=== PATIENT | male | born 1945 | race Caucasian/White ===

== ENCOUNTER → 2017-07-07 | Outpatient (CLI) | payer MEDICARE, BC ==
[2017-07-07 11:03] LABS: Blood Urea Nitrogen 11 mg/dL (9-20)
--- NOTE | 2017-07-07 13:01 | CT ---
EXAMINATION TYPE: CT abdomen pelvis w con DATE OF EXAM: 07/07/2017 COMPARISON: CT abdomen and pelvis January 23, 2014 HISTORY: Malignant neoplasm of prostate CT DLP: 1221.7 mGycm, Automated Exposure Control for Dose Reduction was Utilized. CONTRAST: CT scan of the abdomen and pelvis is performed with oral and with IV Contrast, patient injected with 100 mL of Isovue 300. FINDINGS: LUNG BASES: There is elevated left hemidiaphragm with bibasilar scarring and/or atelectasis redemonst rated. LIVER/GB: Somewhat contracted gallbladder is noted. Liver is diffusely low dense consistent with fatt y infiltration. PANCREAS: No significant abnormality is seen. SPLEEN: No significant abnormality is seen. ADRENALS: No significant abnormality is seen. KIDNEYS: No significant abnormality is seen. BOWEL: Oral contrast reaches level of rectum. There are diverticula in the colon most prominent in th e sigmoid:. There is no CT evidence for acute diverticulitis. There is no suspicious small or large b owel dilatation. PROSTATE/SEMINAL VESICLES: 3 gold therapy seeds are seen in small size prostate gland with central zo ne calcifications. LYMPH NODES: No greater than 1cm abdominal or pelvic lymph nodes are appreciated. OSSEOUS STRUCTURES: Diffuse osseous sclerotic metastatic disease is redemonstrated with multiple lesi ons in the sacrum and bilateral iliac bones and multiple lesions throughout the thoracolumbar vertebr a. There is interval progression with expansion of sclerotic lesion L2 vertebral body level on curren t study. There are left lower rib lesions seen. IMPRESSION: Diffuse osseous metastatic disease redemonstrated. Some progression present as there is i ncreasing involvement at L2 level noted. No new masses or adenopathy otherwise identified.
--- NOTE | 2017-07-07 14:42 | NM ---
EXAMINATION TYPE: NM bone scan whole body DATE OF EXAM: 07/07/2017 COMPARISON: 01/23/2014 HISTORY: [id number] neoplasm of prostate Delayed whole-body scanning was performed following the injection of 24.8 mCi Tc 99m MDP. Images acq uired 3 hours post injection. FINDINGS: There is progressive uptake involving the approximate T9 and L2 segment lesions seen previously. Prev iously noted right 5 and 7 rib lesions are not perceptible at this time. Recently noted left posterio r rib lesion is not perceptible at this time. No new areas of increased uptake to suggest metastatic disease. Degenerative uptake about the shoulders, sternoclavicular joints knees and mid feet. IMPRESSION: 1. Mildly progressive increased uptake involving T9 and L2 lesions. Otherwise the lesions seen previo usly appear improved or resolved. No new lesions are identified.
== END ==
LOC: RADNMMAIN 10:05
PROVIDERS: ATTEND Internal Medicine Hematology & Oncology
DX: C61 Malignant neoplasm of prostate (principal); C79.51 Secondary malignant neoplasm of bone; D53.1 Other megaloblastic anemias, not elsewhere classified
CPT/HCPCS: 82565; 84520; 74177; 36415; 78306; A9503; Q9967

== ENCOUNTER → 2017-12-29 | Outpatient (CLI) | payer MEDICARE, BC ==
[2017-12-29 09:54] LABS: Blood Urea Nitrogen 13 mg/dL (9-20)
--- NOTE | 2017-12-29 09:57 | XR ---
EXAMINATION TYPE: XR chest 2V DATE OF EXAM: 12/29/2017 COMPARISON: 1013 attending HISTORY: Shortness of breath TECHNIQUE: Frontal and lateral views of the chest are obtained. FINDINGS: Scattered senescent parenchymal changes noted. Pulmonary nodules redemonstrated. Overall stability relative to 2009. No evidence for infiltrate. No evidence for atelectasis. Heart size is stable. Mediastinal structures are stable and grossly unremarkable. No evidence for hilar prominence. Degenerative changes dorsal spine. Suspect sclerotic bone metastases. IMPRESSION: 1. No evidence for acute pulmonary disease. 2. Suspect sclerotic bone metastases. 3. Stable pulmonary nodularity.
--- NOTE | 2017-12-29 13:59 | CT ---
EXAMINATION TYPE: CT abdomen pelvis w con DATE OF EXAM: 12/29/2017 COMPARISON: 07/07/2017 INDICATION: Prostate CA, chemotherapy DLP: 1177.9 mGycm, Automated exposure control for dose reduction was used. CONTRAST: 100 mL of Isovue 300. Study performed with Oral Contrast TECHNIQUE: Axial images were obtained from above the diaphragm to the pubic rami in the axial plane a t 5 mm thick sections. Reconstructed images are reviewed on the computer in the coronal plane. FINDINGS: Limited CT sections are obtained the lung bases. The lung bases are clear. CT ABDOMEN: Liver: Normal Spleen: Normal Pancreas: Normal Adrenal glands: The adrenal glands are normal. Gallbladder: Normal Kidneys: No masses are evident. No hydronephrosis is present. No cysts are present. Delayed images were obtained through the kidneys, which remain unremarkable. Aorta: Vascular calcification is within the aorta. Inferior vena cava: Normal. CT PELVIS: Loops of bowel within the abdomen and pelvis are normal. Multiple diverticular changes are throug h the sigmoid colon. Diffuse additional scattered diverticuli are present. Appendix: What little portion of the appendix appears to be visualized is unremarkable. This is diffi cult to separate from a diverticulum of the posterior cecum. No suspicious inflammatory changes are e vident. Urinary bladder: Normal. Genitourinary structures: Prostate markers are present. Osseous structures: There are some sclerotic lesions within the inferior lateral ischio ramus. There are multiple scattered sclerotic areas within the bilateral iliac wings and within the sacrum suspici ous for metastatic disease. Some vertebral body sclerotic areas are present suggestive for additional metastatic lesions. IMPRESSIONS: 1. Multiple scattered sclerotic lesions including ribs and vertebral bodies sacrum and ilium suggest kameron for metastatic disease.
--- NOTE | 2017-12-29 15:11 | NM ---
EXAMINATION TYPE: NM bone scan whole body DATE OF EXAM: 12/29/2017 COMPARISON: NONE HISTORY: [id number] neoplasm of prostate Delayed whole-body scanning was performed following the injection of 25.8 mCi Tc 99m MDP. Images acq uired 4 hours post injection. FINDINGS: Progressive uptake noted to involve the T9 and L2 segments. There is also uptake noted to involve the posterior left L5-S1 region which is unchanged. Increased uptake is also noted to involve the upper cervical spine to the right of midline posteriorly. Posterior left rib 3. Uptake is new. No additiona l areas of new uptake are seen at this time. Heterogenous uptake involving the ribs. IMPRESSION: 1. Progressive uptake involving the thoracic and lumbar segments T9 and L2 with stable small focal up take at L5-S1. 2. New uptake involving posterior left rib #3.
== END | disposition home or self-care (01) ==
LOC: RADCTMAIN 09:15
PROVIDERS: ATTEND Internal Medicine Hematology & Oncology
DX: C61 Malignant neoplasm of prostate (principal); R91.8 Other nonspecific abnormal finding of lung field; D53.1 Other megaloblastic anemias, not elsewhere classified; Z51.11 Encounter for antineoplastic chemotherapy
CPT/HCPCS: 82565; 84520; 71046; 74177; 36415; 78306; A9503; Q9967

== ENCOUNTER → 2018-03-14 | Outpatient (CLI) | payer MEDICARE, BC ==
[2018-03-14 10:36] LABS: Basophils % (A) 0 %; Eosinophils # (A) 0.1 k/uL (0-0.7); Eosinophils % (A) 1 %; HCT 40.8 % (39.0-53.0); HGB 13.6 gm/dL (13.0-17.5); Lymphocytes # (A) 0.8 k/uL (1.0-4.8); Lymphocytes % (A) 9 %; MCHC 33.4 g/dL (31.0-37.0); MCV 113.7 fL (80.0-100.0); Macrocytosis Marked; Mean Platelet Volume 6.8; Monocytes # (A) 0.4 k/uL (0-1.0); Monocytes % (A) 5 %; Neutrophils % (A) 83 %; Platelet Count 223 k/uL (150-450); RBC 3.58 m/uL (4.30-5.90); RDW 12.7 % (11.5-15.5); WBC 8.4 k/uL (3.8-10.6)
== END | disposition home or self-care (01) ==
LOC: LABWHC1 09:41
PROVIDERS: ATTEND Radiology Radiation Oncology
DX: C61 Malignant neoplasm of prostate (principal)
CPT/HCPCS: 36415; 84153; 84403; 85025

== ENCOUNTER → 2018-05-01 | Outpatient (CLI) | payer MEDICARE, BC ==
[2018-05-01 13:08] LABS: Basophils % (A) 1 %; Eosinophils # (A) 0.1 k/uL (0-0.7); Eosinophils % (A) 1 %; HCT 41.1 % (39.0-53.0); HGB 13.6 gm/dL (13.0-17.5); Lymphocytes # (A) 0.8 k/uL (1.0-4.8); Lymphocytes % (A) 12 %; MCHC 33.1 g/dL (31.0-37.0); MCV 114.9 fL (80.0-100.0); Macrocytosis Marked; Mean Platelet Volume 7.7; Monocytes # (A) 0.4 k/uL (0-1.0); Monocytes % (A) 5 %; Neutrophils # (A) 5.5 k/uL (1.3-7.7); Neutrophils % (A) 80 %; Platelet Count 208 k/uL (150-450); RBC 3.57 m/uL (4.30-5.90); RDW 12.6 % (11.5-15.5); WBC 6.8 k/uL (3.8-10.6)
[2018-05-01 18:42] LABS: Anion Gap 6.5 mmol/L (4.00-12.00); Calcium 9.2 mg/dL (8.7-10.3); Carbon Dioxide 30.5 mmol/L (21.6-31.8); Potassium 5.1 mmol/L (3.5-5.5)
== END ==
LOC: LABWHC1 10:53
PROVIDERS: ATTEND Radiology Radiation Oncology
DX: C61 Malignant neoplasm of prostate (principal); D64.9 Anemia, unspecified; Z92.3 Personal history of irradiation
CPT/HCPCS: 36415; 80048; 85025

== ENCOUNTER → 2018-06-26 | Outpatient (CLI) | payer MEDICARE, BC ==
[2018-06-26 12:39] LABS: Basophils % (A) 0 %; Eosinophils % (A) 0 %; HGB 13.1 gm/dL (13.0-17.5); Lymphocytes # (A) 0.6 k/uL (1.0-4.8); Lymphocytes % (A) 10 %; MCH 37.6 pg (25.0-35.0); MCHC 33.7 g/dL (31.0-37.0); MCV 111.6 fL (80.0-100.0); Macrocytosis Marked; Mean Platelet Volume 7.4; Monocytes # (A) 0.3 k/uL (0-1.0); Monocytes % (A) 6 %; Neutrophils # (A) 5.1 k/uL (1.3-7.7); Neutrophils % (A) 82 %; Platelet Count 213 k/uL (150-450); RBC 3.49 m/uL (4.30-5.90); RDW 12.8 % (11.5-15.5); WBC 6.2 k/uL (3.8-10.6)
[2018-06-26 20:28] LABS: Anion Gap 8.6 mmol/L (4.00-12.00); Calcium 9.5 mg/dL (8.7-10.3); Carbon Dioxide 27.4 mmol/L (21.6-31.8); Potassium 4.8 mmol/L (3.5-5.5)
== END | disposition home or self-care (01) ==
LOC: LABWHC1 11:08
PROVIDERS: ATTEND Radiology Radiation Oncology
DX: C61 Malignant neoplasm of prostate (principal); C79.51 Secondary malignant neoplasm of bone; Z92.3 Personal history of irradiation
CPT/HCPCS: 36415; 80048; 84153; 85025

== ENCOUNTER → 2019-01-03 | Outpatient (CLI) | payer MEDICARE, BC ==
--- NOTE | 2019-01-04 17:52 | MR ---
EXAMINATION TYPE: MR cervical spine wo/w con DATE OF EXAM: 01/03/2019 COMPARISON: None HISTORY: Prostate cancer / Neck pain, Numbness Rt face CONTRAST: Performed utilizing 7.5 mL intravenous Gadavist gadolinium contrast. TECHNIQUE: Multiplanar multiecho imaging on a 3.0 Jaz magnet is performed through the cervical spin e. FINDINGS: The craniovertebral junction is normal. There is straightening of the cervical spine within the midportion. A mild retrolisthesis of C4 on C3 and C4 on C5 may be present. Mild anterolisthesis of C5 on C6 may be present. C7-T1: No focal disc herniation or significant disc bulge is evident. No spinal canal stenosis or n eural foraminal stenosis is present. C6-7: Endplate changes and disc bulge at mild anterior thecal sac compression. No AP spinal canal celeste nosis is present. Uncovertebral joint hypertrophy is moderate bilateral foraminal stenosis.. C5-6: Disc uncovering is present. No cord compression is evident. Uncovertebral joint hypertrophy is present with moderate bilateral foraminal stenosis.. C4-5: There is a large disc bulge. This is somewhat asymmetric into the left paracentral region. [place] neeru, no cord contact or cord deformity is evident. This does come in close approximation with spinal cord. No AP spinal canal stenosis is present. Mild bilateral foraminal narrowing from uncovertebral j oint hypertrophy is present.. C3-4: No focal disc herniation or significant disc bulge is evident. No spinal canal stenosis or nini ral foraminal stenosis is present. C2-3: No focal disc herniation or significant disc bulge is evident. No spinal canal stenosis or nini ral foraminal stenosis is present. IMPRESSIONS: 1. Large disc bulge C4-5 into the left paracentral region without cord contact or cord deformity. 2. Disc uncovering with mild anterior thecal sac compression at C5-6. 3. Endplate changes and disc bulging at C6-7 with mild anterior thecal sac impression. 4. Multilevel foraminal stenosis is present bilaterally and appears greatest C5-6 C6-7.
== END | disposition home or self-care (01) ==
LOC: RADMRIMAIN 15:20
PROVIDERS: ATTEND Internal Medicine Hematology & Oncology
DX: M48.02 Spinal stenosis, cervical region (principal); M47.812 Spondylosis without myelopathy or radiculopathy, cervical region; M50.821 Other cervical disc disorders at C4-C5 level; G95.89 Other specified diseases of spinal cord; C79.82 Secondary malignant neoplasm of genital organs
CPT/HCPCS: 72156; A9585

== ENCOUNTER → 2019-05-09 | Outpatient (CLI) | payer MEDICARE, BC ==
--- NOTE | 2019-05-09 15:56 | US ---
EXAMINATION TYPE: US carotid duplex BILAT DATE OF EXAM: 05/09/2019 COMPARISON: NONE CLINICAL HISTORY: C61 Malignant neoplasm of prostate, R55 Syncope. EXAM MEASUREMENTS: RIGHT: Peak Systolic Velocity (PSV) cm/sec ----- Right CCA: 49.5 ----- Right ICA: 65.5 ----- Right ECA: 54.0 ICA/CCA ratio: 1.3 RIGHT: End Diastole cm/sec ----- Right CCA: 12.8 ----- Right ICA: 23.2 ----- Right ECA: 7.2 LEFT: Peak Systolic Velocity (PSV) cm/sec ----- Left CCA: 51.0 ----- Left ICA: 62.6 ----- Left ECA: 41.4 ICA/CCA ratio: 1.2 LEFT: End Diastole cm/sec ----- Left CCA: 12.2 ----- Left ICA: 17.3 ----- Left ECA: 4.7 VERTEBRALS (direction of flow): Right Vertebral: Antegrade Left Vertebral: Antegrade Rhythm: Arrhythmia Mild atherosclerotic changes without significant velocity increases. IMPRESSION: Mild degree of grayscale atheromatous plaquing with no sonographically evident hemodynam ically significant stenosis within either visualized carotid arterial system. Criteria for Assigning % of Stenosis / Diameter reduction (Estimation based on the indirect measurements of the internal carotid artery velocities (ICA PSV). 1. Normal (no stenosis)=ICA PSV < 125 cm/s: ratio < 2.0: ICA EDV<40 cm/s. 2. Less than 50% stenosis=ICA PSV < 125 cm/s: ratio < 2.0: ICA EDV<40 cm/s. 3. 50 to 69% stenosis=ICA PSV of 125 to 230 cm/s: ration 2.0 ? 4.0: ICA EDV 40-100 cm/s. 4. Greater than 70% stenosis to near occlusion= ICA PSV > 230 cm/s: ratio > 4.0: ICA EDV > 100 cm/s. 5. Near occlusion= ICA PSV velocities may be low or undetectable: variable ratio and ICA EDV. 6. Total occlusion=unable to detect flow.
--- NOTE | 2019-05-09 17:29 | ECHOF ---
Referral Reason:C61 Malignant neoplasm of prostate, R55 Syncope MEASUREMENTS -------- HEIGHT: 175.3 cm WEIGHT: 81.6 kg BP: 177/75 RVIDd: 3.3 cm (< 3.3) IVSd: 1.2 cm (0.6 - 1.1) LVIDd: 5.1 cm (3.9 - 5.3) LVPWd: 1.2 cm (0.6 - 1.1) IVSs: 1.6 cm LVIDs: 3.0 cm LVPWs: 1.8 cm LA Diam: 4.0 cm (2.7 - 3.8) LAESV Index (A-L): 28.27 ml/m Ao Diam: 3.2 cm (2.0 - 3.7) AV Cusp: 2.3 cm (1.5 - 2.6) MV EXCURSION: 24.078 mm (> 18.000) MV EF SLOPE: 182 mm/s (70 - 150) EPSS: 1.0 cm MV E Andi: 0.92 m/s MV DecT: 231 ms MV A Andi: 0.76 m/s MV E/A Ratio: 1.21 AR PHT: 1642 ms RAP: 5.00 mmHg RVSP: 30.01 mmHg TAPSE: 21.48 mm FINDINGS -------- Sinus rhythm. This was a technically good study. The left ventricular size is normal. There is borderline concentric left ventricular hypertrophy. Overall left ventricular systolic function is normal with, an EF between 60 - 65 %. The right ventricle is mildly enlarged. Normal LA size by volume 22+/-6 ml/m2. The right atrium is normal in size. Interatrial and interventricular septum intact. The aortic valve is trileaflet and appears structurally normal. There is trace to mild mitral regurgitation. Mild tricuspid regurgitation present. Right ventricular systolic pressure is normal at < 35 mmHg. Trace/mild (physiologic) pulmonic regurgitation. The aortic root size is normal. Normal inferior vena cava with normal inspiratory collapse consistent with estimated right atrial pre ssure of 5 mmHg. There is no pericardial effusion. CONCLUSIONS -------- 1. Sinus rhythm. 2. This was a technically good study. 3. The left ventricular size is normal. 4. There is borderline concentric left ventricular hypertrophy. 5. Overall left ventricular systolic function is normal with, an EF between 60 - 65 %. 6. The right ventricle is mildly enlarged. 7. Normal LA size by volume 22+/-6 ml/m2. 8. The right atrium is normal in size. 9. Interatrial and interventricular septum intact. 10. The aortic valve is trileaflet and appears structurally normal. 11. There is trace to mild mitral regurgitation. 12. Mild tricuspid regurgitation present. 13. Right ventricular systolic pressure is normal at < 35 mmHg. 14. Trace/mild (physiologic) pulmonic regurgitation. 15. The aortic root size is normal. 16. Normal inferior vena cava with normal inspiratory collapse consistent with estimated right atrial pressure of 5 mmHg. 17. There is no pericardial effusion. STUDENT DEVELOPMENT COORDINATOR: Taryn Powell RDCS
== END | disposition home or self-care (01) ==
LOC: RADECHMAIN 14:32
PROVIDERS: ATTEND Internal Medicine Hematology & Oncology
DX: I08.1 Rheumatic disorders of both mitral and tricuspid valves (principal); I65.23 Occlusion and stenosis of bilateral carotid arteries; C61 Malignant neoplasm of prostate
CPT/HCPCS: 93005; 93306; 93880

== ENCOUNTER → 2019-09-06 | Outpatient (CLI) | payer MEDICARE, BC ==
--- NOTE | 2019-09-06 14:07 | NM ---
EXAMINATION TYPE: NM bone scan whole body DATE OF EXAM: 09/06/2019 COMPARISON: Prior bone scan 12/19/2017 HISTORY: Prostate cancer, C 61 Delayed whole-body scanning was performed following the injection of 24.8 mCi Tc 99m MDP. Images acq uired 3 hours post injection. FINDINGS: There has been progression in the number of foci of uptake within the skeleton. Increased number of r ib lesions, thoracic and lumbar lesions, pelvic lesions, cervical lesions are present as compared to previous exam. Right mandibular lesion may be due to periodontal disease. Soft tissue uptake is inez l. IMPRESSION: Progression in number of metastatic lesions.
== END | disposition home or self-care (01) ==
LOC: RADNMMAIN 10:11
PROVIDERS: ATTEND Internal Medicine Hematology & Oncology
DX: Z51.11 Encounter for antineoplastic chemotherapy (principal); C79.51 Secondary malignant neoplasm of bone; C61 Malignant neoplasm of prostate; D53.1 Other megaloblastic anemias, not elsewhere classified
CPT/HCPCS: 78306; A9503

== ENCOUNTER → 2019-09-17 | Outpatient (CLI) | payer MEDICARE, BC ==
[2019-09-17 11:55] LABS: African American GFR (CKD) >90 (>60 ml/min/1.73 sqM); Blood Urea Nitrogen 12 mg/dL (9-20); Non-African American GFR(CKD) 81 (>60 ml/min/1.73 sqM)
--- NOTE | 2019-09-17 17:42 | CT ---
EXAMINATION TYPE: CT abdomen pelvis w con DATE OF EXAM: 09/17/2019 COMPARISON: Most recent CT of the pelvis 12/29/2017. Nuclear medicine bone scan 09/06/2019. HISTORY: prostate ca CT DLP: 1066.40 mGycm Automated exposure control for dose reduction was used. TECHNIQUE: Helical acquisition of images was performed from the lung bases through the pelvis. CONTRAST: Performed with Oral Contrast and with IV Contrast, patient injected with 100 mL of Isovue 300. FINDINGS: LUNG BASES: No mass or pleural effusion. 2 to 3 mm perifissural nodules of the right lower lobe (4:2, 4:1) may represent perifissural lymph nodes. Calcified coronary artery disease. Cardiomegaly or mary cardial effusion. LIVER/GB: Fatty liver. No biliary duct dilatation. PANCREAS: No significant abnormality is seen. SPLEEN: No significant abnormality is seen. ADRENALS: No significant abnormality is seen. KIDNEYS: Too small to characterize hypodensities in the right renal lower pole. No hydronephrosis. BOWEL: No evidence of obstruction or thickening. Colonic diverticulosis. No acute diverticulitis. PERITONEUM: No pneumoperitoneum or ascites. Fat-containing left inguinal hernia. PELVIS: Prostate brachytherapy seeds. Normal urinary bladder. LYMPH NODES: No lymphadenopathy. VASCULATURE: No abdominal aortic aneurysm. Moderate calcified atherosclerotic disease. OSSEOUS STRUCTURES: Multifocal sclerotic osseous metastatic disease, mildly increased versus [address]18 CT comparison. IMPRESSION: OSTEOBLASTIC METASTATIC PROSTATE CANCER, MILDLY INCREASED VERSUS 2018 CT COMPARISON, DEMONSTRATED ON 09/06/2019 NUCLEAR MEDICINE BONE SCAN. NO OTHER ABDOMINOPELVIC METASTATIC DISEASE.
== END ==
LOC: RADCTMAIN 11:21
PROVIDERS: ATTEND Internal Medicine Hematology & Oncology
DX: C61 Malignant neoplasm of prostate (principal); C79.51 Secondary malignant neoplasm of bone; Z51.11 Encounter for antineoplastic chemotherapy; D53.1 Other megaloblastic anemias, not elsewhere classified
CPT/HCPCS: 82565; 84520; 74177; 36415; Q9967

== ENCOUNTER → 2019-11-13 | Outpatient (CLI) | payer MEDICARE, BC ==
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
== END | disposition home or self-care (01) ==
LOC: RADMRIMAIN 12:40
PROVIDERS: ATTEND Internal Medicine
DX: M48.02 Spinal stenosis, cervical region (principal); M48.03 Spinal stenosis, cervicothoracic region; M50.321 Other cervical disc degeneration at C4-C5 level; M43.12 Spondylolisthesis, cervical region; M43.13 Spondylolisthesis, cervicothoracic region; M47.892 Other spondylosis, cervical region; M53.82 Other specified dorsopathies, cervical region
CPT/HCPCS: 72156; A9585

== ENCOUNTER → 2019-12-18 | Outpatient (CLI) | payer MEDICARE, BC ==
--- NOTE | 2019-12-18 14:52 | US ---
EXAMINATION TYPE: US venous doppler duplex LE DATE OF EXAM: 12/18/2019 2:36 PM COMPARISON: NONE CLINICAL HISTORY: C61 Prostate Cancer. Bilateral leg pain and swelling SIDE PERFORMED: Bilateral TECHNIQUE: The lower extremity deep venous system is examined utilizing real time linear array sonog yusef with graded compression, doppler sonography and color-flow sonography. VESSELS IMAGED: External Iliac Vein (EIV) Common Femoral Vein Deep Femoral Vein Greater Saphenous Vein * Femoral Vein Popliteal Vein Small Saphenous Vein * Proximal Calf Veins (* superficial vessels) Right Leg: Normal flow, compressibility, and vascular waveforms. Left Leg: There is a partially occlusive thrombus of the proximal and mid femoral vein, with partial compressibility. IMPRESSION: 1. Partially occlusive thrombus of the left lower extremity proximal and mid femoral vein. 2. No deep venous thrombosis of the right lower extremity. Office of GLADIS Salcedo, notified by [employer] professor at time of exam.
== END | disposition home or self-care (01) ==
LOC: RADUSWWP 14:12
PROVIDERS: ATTEND Internal Medicine
DX: C61 Malignant neoplasm of prostate (principal); I82.412 Acute embolism and thrombosis of left femoral vein
CPT/HCPCS: 93970

== ENCOUNTER → 2019-12-20 | Outpatient (CLI) | payer MEDICARE, BC ==
--- NOTE | 2019-12-20 15:10 | NM ---
EXAMINATION TYPE: NM bone scan whole body DATE OF EXAM: 12/20/2019 COMPARISON: NONE HISTORY: Prostate cancer Delayed whole-body scanning was performed following the injection of 24.3 mCi Tc 99m MDP. Images wer e acquired 3 hours post injection. FINDINGS: There are focal areas of increased uptake within the mid thoracic spine suspicious for metastatic dis ease. The region of the pedicles of right T10, bilateral T9, slightly mild at T8 and right T7 there i s focal uptake which could be related to metastatic disease. Some uptake is also present within the r egion of L1 and on the left at L3 suspicious for metastatic disease. There is uptake within the cervical spine greater on the anterior right upper cervical spine.. [place] id disease could be considered within the differential. Some posterior left mid cervical spine uptake is present. Degenerative changes of metastatic disease could be considered There are multiple suspicious scattered areas of focal uptake within the ribs. On the uptake in the r egion of the left posterior eighth rib with 2 adjacent lesions in the posterior medial left seventh r ib with uptake within a linear areas suspicious for metastatic disease. Additional anterior bilateral rib foci of uptake are present. Findings are more suggestive for metastatic disease within posttraum atic changes. IMPRESSION: 1. Multiple areas of abnormal uptake including bilateral ribs mid thoracic spine and within the lumba r spine. Findings are suspicious for metastatic disease.
== END | disposition home or self-care (01) ==
LOC: RADNMMAIN 10:09
PROVIDERS: ATTEND Internal Medicine
DX: C61 Malignant neoplasm of prostate (principal); R93.7 Abnormal findings on diagnostic imaging of other parts of musculoskeletal system
CPT/HCPCS: 78306; A9503

== ENCOUNTER → 2019-12-30 | Outpatient (CLI) | payer MEDICARE, BC ==
[2019-12-30 14:40] LABS: African American GFR (CKD) >90 (>60 ml/min/1.73 sqM); Blood Urea Nitrogen 12 mg/dL (9-20); Non-African American GFR(CKD) 83 (>60 ml/min/1.73 sqM)
--- NOTE | 2019-12-31 08:40 | CT ---
EXAMINATION TYPE: CT ChestAbdPelvis w con DATE OF EXAM: 12/30/2019 COMPARISON: Prior CT 09/17/2019, bone scan 12/20/2019 HISTORY: Prostate cancer CT DLP: 1537 mGycm Automated exposure control for dose reduction was used. CONTRAST: CT scan of the chest, abdomen and pelvis is performed with Oral Contrast and with IV Contrast, patien t injected with 100 mL of Isovue 300. FINDINGS: There is a port in the right pectoral region, catheter courses via subclavian approach and terminates in the superior vena cava LUNGS: The lungs are grossly clear, there is no concerning parenchymal mass or nodule identified. T here is no pleural effusion or pneumothorax seen. The tracheobronchial tree is patent. MEDIASTINUM: There are no greater than 1 cm hilar or mediastinal lymph nodes. Filling defect is noted within the right pulmonary artery and branch to the right upper lobe, axial image #24, 23 and 27 No pericardial effusion is seen. There are coronary artery calcifications present. AORTA: No significant abnormality is seen. OTHER: No additional significant abnormality is seen. LIVER/GB: Liver shows low attenuation possibly due to hepatic steatosis.. PANCREAS: No significant abnormality is seen. SPLEEN: No significant abnormality is seen. ADRENALS: No significant abnormality is seen. KIDNEYS: No significant abnormality is seen. REPRODUCTIVE ORGANS: Post prostatectomy changes are present. BOWEL: Extensive diverticular change noted within the visualized colon, no evident bowel obstruction . FREE AIR: No Free Air visible. ASCITES: None seen. RETROPERITONEAL ADENOPATHY: No retroperitoneal adenopathy is seen. LYMPH NODES: No greater than 1 cm abdominal or pelvic lymph nodes are appreciated. URINARY BLADDER: No significant abnormality is seen. PELVIC ADENOPATHY: None visualized. OSSEOUS STRUCTURES: Too numerous to count sclerotic foci are scattered throughout the skeleton consi stent with metastasis. Degenerative disc changes noted within the visualized spine. IMPRESSION: Pulmonary embolism, report relayed to answering service at the time of interpretation, no answer at the physician office at this time. Referring physician notified via perfect serve. Bony me tastatic disease.
== END | disposition home or self-care (01) ==
LOC: RADPROMAIN 13:37
PROVIDERS: ATTEND Internal Medicine
DX: I26.99 Other pulmonary embolism without acute cor pulmonale (principal); C79.51 Secondary malignant neoplasm of bone; C61 Malignant neoplasm of prostate; Z51.11 Encounter for antineoplastic chemotherapy; D53.1 Other megaloblastic anemias, not elsewhere classified; D70.1 Agranulocytosis secondary to cancer chemotherapy
CPT/HCPCS: 82565; 84520; 71260; 74177; J1642; Q9967